=== PATIENT | male | born 1975 | race Caucasian/White ===

== ENCOUNTER 2022-01-18 08:40 | Emergency (ER) | payer OTHER | END 2022-01-18 09:52 | disposition home or self-care (01) | LOC: JP.ED 08:40 | DX: T78.40XA Allergy, unspecified, initial encounter (principal); N40.0 Benign prostatic hyperplasia without lower urinary tract symptoms; Z79.899 Other long term (current) drug therapy; Z87.891 Personal history of nicotine dependence | CPT/HCPCS: 99281; 99283 ==